=== PATIENT | female | born 1960 | race Caucasian/White ===

== ENCOUNTER 2019-01-17 17:11 | Inpatient (IN) | payer MEDICARE, MEDICAID ==
[~2019-01-17] VITALS: Ht 127 cm; Wt 36.7 kg
[2019-01-17 17:30] VITALS: BP_SYST 64
[2019-01-17] MEDS ORDERED: NACL 0.9% 1,000 ML IV ONE ×2 (17:30→19:00)
[2019-01-17 18:08] LABS: BASOPHILS % (AUTO) 0.2 % (0.0-2.0); EOSINOPHILS % (AUTO) 0.1 % (0.0-4.0); HEMATOCRIT 28.5 % (36-48); HEMOGLOBIN 9.3 g/dL (12.0-16.0); LYMPHOCYTES # (AUTO) 0.9 K/uL (1.0-5.5); LYMPHOCYTES % (AUTO) 5.9 % (20.5-51.5); MEAN CORPUSCULAR HEMOGLOBIN 32 pg (27-31); MEAN CORPUSCULAR HGB CONC 33 % (32-36); MEAN CORPUSCULAR VOLUME 98 fL (79.0-98.0); MONOCYTES # (AUTO) 0.5 K/uL (0.0-1.0); MONOCYTES % (AUTO) 3.6 % (1.7-9.3); NEUTROPHILS # (AUTO) 13.4 K/uL (1.8-7.7); NEUTROPHILS % (AUTO) 90.2 % (40.0-70.0); PLATELET COUNT (AUTO) 173 K/uL (130-430); RED BLOOD CELL COUNT(AUTO) 2.91 MIL/uL (4.2-6.2); WHITE BLOOD COUNT (AUTO) 14.8 K/uL (4.8-10.8)
[2019-01-17 18:26] LABS: CALCIUM 8.6 mg/dL (8.4-11.0); CREATININE 1.3 mg/dL (0.55-1.30)
[2019-01-17 18:31] LABS: ALBUMIN 1.5 g/dL (3.4-4.8); TOTAL BILIRUBIN 0.3 mg/dL (0.0-1.0)
[2019-01-17 18:39] LABS: POTASSIUM 2.9 mmol/L (3.5-5.1)
[2019-01-17] MEDS ORDERED: KCL 20 mEq in 0.45% NS 1000 mL 1,000 ML IV ONE (18:45)
[2019-01-17] MEDS ORDERED: LORazepam 2 MG/ML VIAL (FOR ER USE) IVP ONE (19:00)
[2019-01-17] MEDS ORDERED: LAMO200T2 PO (19:39)
[2019-01-17] MEDS ORDERED: DONE10TA44 PO (19:39)
[2019-01-17] MEDS ORDERED: CALC-805 PO (19:39)
[2019-01-17] MEDS ORDERED: LEVE250T2 PO (19:39)
[2019-01-17] MEDS ORDERED: DABI150C PO (19:39)
[2019-01-17] MEDS ORDERED: LAC-DOSE PO (19:39)
[2019-01-17] MEDS ORDERED: CYAN25004 SL (19:39)
[2019-01-17] MEDS ORDERED: FLUC100T41 PO (19:39)
[2019-01-17] MEDS ORDERED: OMEP1PAC5 PO (19:39)
[2019-01-17] MEDS ORDERED: LEVO137T2 PO (19:39)
[2019-01-17] MEDS ORDERED: THOR25 PO (19:39)
[2019-01-17] MEDS ORDERED: TRAZ-219 PO (19:39)
[2019-01-17] MEDS ORDERED: SCOP1PAT17 TD (19:39)
[2019-01-17] MEDS ORDERED: LEVO125T8 PO (19:39)
[2019-01-17] MEDS ORDERED: SER100 PO (19:39)
[2019-01-17 20:23] LABS: BILIRUBIN,URINE NEGATIVE (NEGATIVE); BLOOD, URINE NEGATIVE (NEGATIVE); CLARITY/URINE CLOUDY (CLEAR); COLOR,URINE YELLOW (YELLOW); GLUCOSE,URINE NEGATIVE (NEGATIVE); KETONES,URINE TRACE (NEGATIVE); LEUKOCYTE ESTERASE ,URINE TRACE (NEGATIVE); NITRITE, URINE NEGATIVE (NEGATIVE); PROTEIN URINE TRACE (NEGATIVE); UROBILINOGEN,URINE 0.2 (0.2-1.0)
[2019-01-17 20:29] LABS: BACTERIA,URINE MANY /HPF (None Seen); CALCIUM OXALATE CRYSTALS,UR 0-10 /HPF (None Seen); RBC,URINE 0-3 /HPF (0-3); URINE AMORPHOUS URATE 2+ /HPF (None Seen); WBC,URINE 20-50 /HPF (0-3); YEAST,URINE Moderate /HPF (None Seen)
[2019-01-17 20:30] LABS: FINE GRANULAR CASTS,URINE 0-10 /LPF (None Seen); MUCUS,URINE 3+ /LPF (None Seen)
[2019-01-17] MEDS ORDERED: cefTRIAXone 1 GM IVPB PREMIX 50 ML IV ONE (21:00)
[2019-01-17] MEDS ORDERED: PIPERACILLIN/TAZO 3.375 GM in NS 50 ML IV ONE (21:15)
[2019-01-17] MEDS ORDERED: NOREPINEPHRINE BITARTRATE 4 MG in NS 246 ML IV ONE (21:15)
[2019-01-17] MEDS ORDERED: VANCOMYCIN HCL 750 MG in NS 250 ML IV ONE (21:15)
[2019-01-17] MEDS ORDERED: NOREPINEPHRINE 4 MG/4 ML VIAL IV ONE (21:24)
[2019-01-17] MEDS ORDERED: VANCOMYCIN HCL 1000 MG/VIAL IV ONE (21:25)
[2019-01-17] MEDS ORDERED: PIPERACILLIN/TAZOBACTAM 3.375 GM/VIAL (ZOSYN) IV ONE (21:25)
[2019-01-17] MEDS ORDERED: KCL 40mEq in D5/0.45NS 1000 mL 1,000 ML IV ONE (22:45)
[2019-01-17] MEDS ORDERED: THORAZINE (chlorproMAZINE) 25 MG TAB PO PRN (22:45)
[2019-01-17] MEDS ORDERED: ACETAMINOPHEN 650 MG SUPP.RECT RC PRN (22:45)
[2019-01-17] MEDS ORDERED: ACETAMINOPHEN 325 MG TABLET PO PRN (22:45)
[2019-01-17 23:25] VITALS: BP_SYST 97
[2019-01-17 23:30] VITALS: BP_SYST 97
[2019-01-17 23:50] VITALS: BP_SYST 96
[2019-01-18] VITALS (24 sets, daily range): BP systolic 81–134
[2019-01-18] MEDS ORDERED: PANTOPRAZOLE SODIUM 40 MG/VIAL (PROTONIX) IVP ONE ×2 (00:45→14:30)
[2019-01-18] MEDS ORDERED: LORazepam 2 MG/ML VIAL IVP PRN ×2 (00:45→13:00)
[2019-01-18] MEDS: ALBUTEROL SULFATE 0.083% 2.5 MG/3 ML VIAL.NEB INH SCH ×3 (00:45→19:46)
[2019-01-18] MEDS ORDERED: LEVOFLOXACIN 250 MG/D5W 50 ML IV ONE ×2 (01:00→01:18)
[2019-01-18] MEDS ORDERED: KCL 40mEq in D5/0.45NS 1000 mL 1,000 ML IV ONE (01:19)
[2019-01-18] MEDS: HYDROCORTISONE SOD SUCC 100 MG/2 ML VIAL IVP SCH ×3 (06:10→21:13)
[2019-01-18] MEDS: LEVOTHYROXINE SODIUM 0.125 MG TABLET PO SCH ×2 (06:10→09:00)
[2019-01-18 09:00] LABS: BASOPHILS % (AUTO) 0.2 % (0.0-2.0); EOSINOPHILS % (AUTO) 0.2 % (0.0-4.0); HEMATOCRIT 27.7 % (36-48); HEMOGLOBIN 9.2 g/dL (12.0-16.0); LYMPHOCYTES # (AUTO) 0.6 K/uL (1.0-5.5); LYMPHOCYTES % (AUTO) 6.1 % (20.5-51.5); MEAN CORPUSCULAR HEMOGLOBIN 33 pg (27-31); MEAN CORPUSCULAR HGB CONC 33 % (32-36); MEAN CORPUSCULAR VOLUME 98 fL (79.0-98.0); MONOCYTES # (AUTO) 0.3 K/uL (0.0-1.0); MONOCYTES % (AUTO) 2.9 % (1.7-9.3); NEUTROPHILS # (AUTO) 9.5 K/uL (1.8-7.7); NEUTROPHILS % (AUTO) 90.6 % (40.0-70.0); PLATELET COUNT (AUTO) 178 K/uL (130-430); RED BLOOD CELL COUNT(AUTO) 2.83 MIL/uL (4.2-6.2); RED CELL DISTRIBUTION WIDTH 19.3 % (9.0-15.0); WHITE BLOOD COUNT (AUTO) 10.5 K/uL (4.8-10.8)
[2019-01-18] MEDS: CALCIUM CARBONATE/VITAMIN D3 1 TAB TABLET PO SCH (09:00)
[2019-01-18] MEDS: LamoTRIgine 100 MG TABLET PO SCH ×2 (09:00→20:58)
[2019-01-18] MEDS ORDERED: QUEtiapine FUMARATE 100 MG TABLET PO SCH (09:00)
[2019-01-18] MEDS ORDERED: LEVOTHYROXINE SODIUM 0.137 MG TABLET PO SCH (09:00)
[2019-01-18] MEDS ORDERED: SODIUM BICARBONATE PO SCH (09:00)
[2019-01-18] MEDS ORDERED: [UNRECOGNIZED DRUG - OTHER] PO SCH (09:00)
[2019-01-18] MEDS ORDERED: OMEPRAZOLE PO SCH (09:00)
[2019-01-18] MEDS ORDERED: levETIRAcetam 500 MG TABLET PO SCH (09:00)
[2019-01-18] MEDS ORDERED: SCOPOLAMINE HYDROBROMIDE 1.5 MG PATCH .72 H (TRANSDERM-SCOP) TD SCH (09:00)
[2019-01-18] MEDS: FLUCONAZOLE 100 MG TABLET (DIFLUCAN) PO SCH (09:00)
[2019-01-18] MEDS: DABIGATRAN ETEXILATE MESYLATE 75 MG CAPSULE PO SCH ×2 (09:00→20:58)
[2019-01-18] MEDS: CYANOCOBALAMIN 1000 mCg TABLET SL SCH (09:00)
[2019-01-18 09:31] LABS: ALBUMIN 1.4 g/dL (3.4-4.8); CALCIUM 7.2 mg/dL (8.4-11.0); CREATININE 0.99 mg/dL (0.55-1.30); FREE T4 (FREE THYROXINE) 1.4 ng/dl (0.8-1.5); PHOSPHORUS 2.4 mg/dL (2.7-4.5); POTASSIUM 3.2 mmol/L (3.5-5.1); THYROID STIMULATING HORMONE 11.07 uIu/mL (0.36-3.74); TOTAL BILIRUBIN 0.3 mg/dL (0.0-1.0)
[2019-01-18] MEDS ORDERED: NOREPINEPHRINE 4 MG/4 ML VIAL IV ONE (09:41)
[2019-01-18] MEDS ORDERED: NOREPINEPHRINE BITARTRATE 4 MG in NS 246 ML IV PRN (09:45)
[2019-01-18] MEDS ORDERED: POTASSIUM CHLORIDE 40 MEQ in NS 250 ML IV ONE (11:45)
[2019-01-18] MEDS ORDERED: PANTOPRAZOLE SODIUM 40 MG/VIAL (PROTONIX) IVP SCH (14:00)
[2019-01-18] MEDS: PIPERACILLIN/TAZO 4.5GM/DEX-IS 100 ML IV SCH ×2 (14:15→21:08)
[2019-01-18] MEDS ORDERED: levETIRAcetam 250 MG in NS 100 ML IV ONE (17:15)
[2019-01-18] MEDS: KCL 40mEq in D5/0.45NS 1000 mL 1,000 ML IV SCH (18:11)
[2019-01-18] MEDS ORDERED: traZODone HCL 50 MG TABLET (DESYREL) PO SCH (21:00)
[2019-01-18] MEDS ORDERED: DONEPEZIL HCL 5 MG TABLET (ARICEPT) PO SCH (21:00)
[2019-01-18] MEDS: NOREPINEPHRINE BITARTRATE 4 MG in NS 246 ML IV PRN (21:09)
[2019-01-19] VITALS (27 sets, daily range): BP systolic 79–148
[2019-01-19] MEDS: ALBUTEROL SULFATE 0.083% 2.5 MG/3 ML VIAL.NEB INH SCH ×2 (00:57→19:51)
[2019-01-19] MEDS: PIPERACILLIN/TAZO 4.5GM/DEX-IS 100 ML IV SCH ×2 (05:24→15:00)
[2019-01-19] MEDS: HYDROCORTISONE SOD SUCC 100 MG/2 ML VIAL IVP SCH ×3 (05:24→23:00)
[2019-01-19 05:35] LABS: BASOPHILS % (AUTO) 0.3 % (0.0-2.0); HEMATOCRIT 26.3 % (36-48); HEMOGLOBIN 8.8 g/dL (12.0-16.0); LYMPHOCYTES # (AUTO) 0.5 K/uL (1.0-5.5); LYMPHOCYTES % (AUTO) 5.8 % (20.5-51.5); MEAN CORPUSCULAR HEMOGLOBIN 33 pg (27-31); MEAN CORPUSCULAR HGB CONC 33 % (32-36); MEAN CORPUSCULAR VOLUME 98 fL (79.0-98.0); MONOCYTES # (AUTO) 0.1 K/uL (0.0-1.0); MONOCYTES % (AUTO) 1.7 % (1.7-9.3); NEUTROPHILS # (AUTO) 8.1 K/uL (1.8-7.7); NEUTROPHILS % (AUTO) 92.2 % (40.0-70.0); PLATELET COUNT (AUTO) 172 K/uL (130-430); RED BLOOD CELL COUNT(AUTO) 2.68 MIL/uL (4.2-6.2); RED CELL DISTRIBUTION WIDTH 19.4 % (9.0-15.0); WHITE BLOOD COUNT (AUTO) 8.8 K/uL (4.8-10.8)
[2019-01-19 06:06] LABS: ALBUMIN 1.4 g/dL (3.4-4.8); CALCIUM 7.3 mg/dL (8.4-11.0); CREATININE 0.79 mg/dL (0.55-1.30); POTASSIUM 5.2 mmol/L (3.5-5.1); TOTAL BILIRUBIN 0.2 mg/dL (0.0-1.0)
[2019-01-19] MEDS: ALBUTEROL SULFATE 0.083% 2.5 MG/3 ML VIAL.NEB INH PRN ×2 (07:46→13:23)
[2019-01-19] MEDS: FLUCONAZOLE 100 MG TABLET (DIFLUCAN) PO SCH (09:00)
[2019-01-19] MEDS: CALCIUM CARBONATE/VITAMIN D3 1 TAB TABLET PO SCH (09:00)
[2019-01-19] MEDS: DABIGATRAN ETEXILATE MESYLATE 75 MG CAPSULE PO SCH ×2 (09:00→21:00)
[2019-01-19] MEDS: LamoTRIgine 100 MG TABLET PO SCH ×2 (09:00→21:00)
[2019-01-19] MEDS: CYANOCOBALAMIN 1000 mCg TABLET SL SCH (09:00)
[2019-01-19] MEDS: LEVOTHYROXINE SODIUM 0.125 MG TABLET PO SCH (09:00)
[2019-01-19] MEDS: levETIRAcetam 250 MG in NS 100 ML IV SCH ×2 (09:45→23:00)
[2019-01-19] MEDS: KCL 40mEq in D5/0.45NS 1000 mL 1,000 ML IV SCH (09:45)
[2019-01-19] MEDS: PANTOPRAZOLE SODIUM 40 MG/VIAL (PROTONIX) IVP SCH (09:46)
[2019-01-19] MEDS: BALSAM PERU/CASTOR OIL 60 GM OINT...G. TP SCH (09:47)
[2019-01-19] MEDS ORDERED: FUROSEMIDE 20 MG/2 ML VIAL IVP ONE (11:00)
[2019-01-19] MEDS ORDERED: ALBUMIN HUMAN 25% 100 ML IV ONE (11:15)
[2019-01-19] MEDS ORDERED: LACTASE 3000 UNIT TABLET PO ONE (12:00)
[2019-01-19] MEDS: D5/0.45 NS 1,000 ML IV SCH (12:14)
[2019-01-19] MEDS ORDERED: NOREPINEPHRINE 4 MG/4 ML VIAL IV ONE (14:09)
[2019-01-19] MEDS: NOREPINEPHRINE BITARTRATE 4 MG in NS 246 ML IV PRN (15:02)
[2019-01-20] VITALS (21 sets, daily range): BP systolic 73–149
[2019-01-20] MEDS: PIPERACILLIN/TAZO 4.5GM/DEX-IS 100 ML IV SCH ×4 (00:24→22:00)
[2019-01-20] MEDS: ALBUTEROL SULFATE 0.083% 2.5 MG/3 ML VIAL.NEB INH SCH ×4 (01:11→19:00)
[2019-01-20 05:38] LABS: BASOPHILS % (AUTO) 0.4 % (0.0-2.0); HEMATOCRIT 24.5 % (36-48); HEMOGLOBIN 8.2 g/dL (12.0-16.0); LYMPHOCYTES # (AUTO) 0.6 K/uL (1.0-5.5); LYMPHOCYTES % (AUTO) 11.5 % (20.5-51.5); MEAN CORPUSCULAR HEMOGLOBIN 33 pg (27-31); MEAN CORPUSCULAR HGB CONC 34 % (32-36); MEAN CORPUSCULAR VOLUME 98 fL (79.0-98.0); MONOCYTES # (AUTO) 0.2 K/uL (0.0-1.0); MONOCYTES % (AUTO) 3.4 % (1.7-9.3); NEUTROPHILS # (AUTO) 4.5 K/uL (1.8-7.7); NEUTROPHILS % (AUTO) 84.7 % (40.0-70.0); PLATELET COUNT (AUTO) 155 K/uL (130-430); RED BLOOD CELL COUNT(AUTO) 2.51 MIL/uL (4.2-6.2); RED CELL DISTRIBUTION WIDTH 19.1 % (9.0-15.0); WHITE BLOOD COUNT (AUTO) 5.4 K/uL (4.8-10.8)
[2019-01-20 06:37] LABS: CALCIUM 7.2 mg/dL (8.4-11.0); CHLORIDE 106 mmol/L (98-107); CREATININE 0.81 mg/dL (0.55-1.30); GLUCOSE 96 mg/dL (70-99); POTASSIUM 3.3 mmol/L (3.5-5.1); SODIUM SERUM 139 mmol/L (136-145); UREA NITROGEN, BLOOD 7 mg/dL (8-21)
[2019-01-20 06:39] LABS: ANION GAP < 3 (5-15); GFR AFRICAN AMERICAN 94 mL/min (>90)
[2019-01-20 06:41] LABS: ALANINE AMINOTRANSFERASE 19 U/L (12-78); ALBUMIN 1.9 g/dL (3.4-4.8); ASPARTATE AMINOTRANSFERASE 19 U/L (10-37); TOTAL BILIRUBIN 0.3 mg/dL (0.0-1.0)
[2019-01-20] MEDS: HYDROCORTISONE SOD SUCC 100 MG/2 ML VIAL IVP SCH ×2 (06:54→13:18)
[2019-01-20] MEDS: D5/0.45 NS 1,000 ML IV SCH (07:00)
[2019-01-20] MEDS ORDERED: LACTASE 3000 UNIT TABLET PO SCH (09:00)
[2019-01-20] MEDS: DABIGATRAN ETEXILATE MESYLATE 75 MG CAPSULE PO SCH ×2 (09:00→21:00)
[2019-01-20] MEDS: LEVOTHYROXINE SODIUM 0.125 MG TABLET PO SCH (09:00)
[2019-01-20] MEDS: CYANOCOBALAMIN 1000 mCg TABLET SL SCH (09:00)
[2019-01-20] MEDS: CALCIUM CARBONATE/VITAMIN D3 1 TAB TABLET PO SCH (09:00)
[2019-01-20] MEDS: LamoTRIgine 100 MG TABLET PO SCH ×2 (09:00→21:00)
[2019-01-20] MEDS: FLUCONAZOLE 100 MG TABLET (DIFLUCAN) PO SCH (09:00)
[2019-01-20] MEDS: levETIRAcetam 250 MG in NS 100 ML IV SCH ×2 (09:08→22:33)
[2019-01-20] MEDS: PANTOPRAZOLE SODIUM 40 MG/VIAL (PROTONIX) IVP SCH (09:09)
[2019-01-20] MEDS: BALSAM PERU/CASTOR OIL 60 GM OINT...G. TP SCH (09:10)
[2019-01-20] MEDS ORDERED: K PHOS 15 MM in NS 250 ML IV ONE (10:30)
[2019-01-20] MEDS ORDERED: HYDROCORTISONE SOD SUCC 100 MG/2 ML VIAL IVP SCH (21:00)
[2019-01-21] VITALS: BP_SYST 127
== END 2019-01-21 00:41 | DRG 871 ==
LOC: SED 17:11 → SIC 22:15 → STU 01-20 18:42
PROVIDERS: ADMIT Internal Medicine; ATTEND Internal Medicine
DX: A41.9 Sepsis, unspecified organism (principal); G93.41 Metabolic encephalopathy; R65.21 Severe sepsis with septic shock; J69.0 Pneumonitis due to inhalation of food and vomit; N17.0 Acute kidney failure with tubular necrosis; E43 Unspecified severe protein-calorie malnutrition; N39.0 Urinary tract infection, site not specified; Q21.0 Ventricular septal defect; N18.3 Chronic kidney disease, stage 3 (moderate); G30.9 Alzheimer's disease, unspecified; F02.80 Dementia in other diseases classified elsewhere, unspecified severity, without behavioral disturbance, psychotic disturbance, mood disturbance, and anxiety; G40.909 Epilepsy, unspecified, not intractable, without status epilepticus; E03.9 Hypothyroidism, unspecified; E78.5 Hyperlipidemia, unspecified; E86.0 Dehydration; E87.6 Hypokalemia; H54.3 Unqualified visual loss, both eyes; F29 Unspecified psychosis not due to a substance or known physiological condition; E83.39 Other disorders of phosphorus metabolism; B96.89 Other specified bacterial agents as the cause of diseases classified elsewhere; G47.00 Insomnia, unspecified; D63.8 Anemia in other chronic diseases classified elsewhere; I49.5 Sick sinus syndrome; I50.9 Heart failure, unspecified; R32 Unspecified urinary incontinence; Z86.718 Personal history of other venous thrombosis and embolism; Q90.9 Down syndrome, unspecified; Z88.1 Allergy status to other antibiotic agents; Z88.2 Allergy status to sulfonamides; Z79.899 Other long term (current) drug therapy; Z87.01 Personal history of pneumonia (recurrent); Z95.0 Presence of cardiac pacemaker; Z68.22 Body mass index [BMI] 22.0-22.9, adult; Z87.81 Personal history of (healed) traumatic fracture
CPT/HCPCS: 36415; 36600; 71045; 80053; 81000-TC; 82140-TC; 82803-TC; 83605; 83735-TC; 83880; 84100-TC; 84439; 84443-TC; 84484; 85025; 87040-TC; 87081; 87086; 87186-TC; 92610-GN; 93005; 94640; 96361; 96365; 96366; 96368; 96375; 99285; C9113; G0378; J1720; J1940; J1953; J1956; J2060; J2543; J3370; J3480; J7030; J7050; J7613; P9046